=== PATIENT | female | born 1970 ===

== ENCOUNTER 2018-11-27 21:30 | Emergency (ER) | payer OTHER ==
[2018-11-27 22:15] VITALS: BP 129/87; PULSE 92; RESP 20; TEMP 99; O2SAT 100
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
--- NOTE | 2018-11-28 21:40 | CARD ---
APPROVED REPORT Date of service: 11/27/2018 EKG Measurement Heart [id number] <Conclusion> Normal sinus rhythm Nonspecific T wave abnormality Abnormal ECG
== END 2018-11-28 00:08 | disposition home or self-care (01) ==
LOC: C.ER 21:30
DX: R07.89 Other chest pain (principal); V43.62XA Car passenger injured in collision with other type car in traffic accident, initial encounter; Y92.410 Unspecified street and highway as the place of occurrence of the external cause